=== PATIENT | female | born 2000 | race Caucasian/White ===

== ENCOUNTER 2023-12-02 11:35 | Emergency (ER) | payer OTHER ==
[~2023-12-02] VITALS: Ht 167.6 cm; Wt 63.5 kg
--- NOTE | 2023-12-02 11:40 | NUR ---
BIBS C/O ASTHMA EXACERBATION,OUT OF ALBUTEROL.
--- NOTE | 2023-12-02 11:55 | NUR ---
AT BEDSIDE FOR EVAL
--- NOTE | 2023-12-02 12:13 | NUR ---
Shereen mayer in ED - 12/02/23 at 1214 by KASSANDRA MELODY C/O ASTHMA EXACERBATION,OUT OF ALBUTEROL.
[2023-12-02] MEDS ORDERED: PRED20TA PO (12:22)
[2023-12-02] MEDS ORDERED: BUDE10.2 INH (12:22)
[2023-12-02] MEDS ORDERED: DESV50TA PO (12:22)
[2023-12-02] MEDS ORDERED: ALBU18HF2 INH (12:22)
[2023-12-02] MEDS ORDERED: ARIP10TA57 PO (12:22)
--- NOTE | 2023-12-02 12:30 | NUR ---
Patient discharged to home in stable condition. Written and verbal after care instructions given. Patient verbalizes understanding of instruction.
[2023-12-02 13:39] VITALS: BP 126/75; TEMP 98.5; O2SAT 98
== END 2023-12-02 12:30 | disposition home or self-care (01) ==
LOC: EDSEX 11:45 → ER 11:45
DX: J45.909 Unspecified asthma, uncomplicated (principal); F17.200 Nicotine dependence, unspecified, uncomplicated; Z86.59 Personal history of other mental and behavioral disorders; Z76.0 Encounter for issue of repeat prescription